=== PATIENT | male | born 1940 | race Caucasian/White ===

== ENCOUNTER 2016-03-22 11:21 | Inpatient (IN) | payer MEDICARE, MEDICAID ==
--- NOTE | 2016-03-22 11:25 | ED Physician Chart ---
Chief Complaint/HPI - Patient Information Date Seen:: 03/22/16 Time Seen:: 11:25 Chief Complaint:: agitation History of Present Illness:: 76-year-old male with underlying dementia, brought in by EMS with acute, constant, moderate to severe, agitation since this morning. Has associated aggressive behavior towards staff when he placed a SPOOL CARRIER into a headlock. History limited as patient has underlying dementia and psychosis History provided by EMS and EMS run sheet Historian:: EMS Review:: Nurse's Note Reviewed, EMS run form Reviewed, Transfer documents Reviewed Review of Systems - Review of Systems Other: Complete system review otherwise unremarkable except as noted in HPI. Past Medical History - Past Medical History Past Medical History: HTN, Dyslipidemia, Dementia Family History: None Social History: Non Smoker, No Alcohol, No Drug Use, Care Facility Surgical History: None Psychiatricy History: Dementia, Other (paranoid delusions) Medication: Reviewed Family Medical History - Family Member Mother History Unknown: Yes Physical Exam - Physical Examination Other:: INITIAL VITAL SIGNS: Reviewed by me GENERAL: Alert and interactive but severely demented. No acute distress HEAD: Head is normocephalic and atraumatic EYES: EOMI. . No scleral icterus. No conjunctival injection ENT: Moist mucous membranes. NECK: Supple. No masses. Full range of motion RESPIRATORY: No tachypnea. Clear breath sounds bilaterally. No wheezing, rales, or rhonchi CV: Regular rate and rhythm. 2/6 systolic murmur with no rubs or gallops ABDOMEN: Soft, non-distended, non-tender. No guarding. No rebound. No masses. EXTREMITIES: No deformity. No cyanosis. No edema. SKIN: Warm and dry. No obvious rashes. NEUROLOGIC: Alert and oriented. Face is symmetric. Speech is normal. Moves all extremities equally. Motor and sensory distally intact. Labs/Radiology/EKG Results - Lab Results Results: Lab Results 03/22/16 03/22/16 03/22/16 Range/Units 11:36 11:36 12:35 WBC 9.6 (4.8-10.8) Th/cmm RBC 5.62 (3.80-5.80) Mil/cmm Hgb 16.2 (12.6-17.4) gm/dL Hct 47.1 (39.0-49.0) % MCV 83.8 (80-99) fl MCH 28.9 (27.0-31.0) pg MCHC Differential 34.4 (28.0-36.0) pg RDW 13.4 (11.5-20.0) % Plt Count 246 (150-400) Th/cmm MPV 8.5 fl Neutrophils % 66.2 (40.0-80.0) % Lymphocytes % 21.0 (20.0-50.0) % Monocytes % 8.1 (2.0-10.0) % Eosinophils % 1.0 (0.0-5.0) % Basophils % 3.7 H (0.0-2.0) % Sodium 135 L (136-145) mEq/L Potassium 4.0 (3.5-5.1) mEq/L Chloride 106 (98-107) mEq/L Carbon Dioxide 24.4 (21.0-31.0) mEq/L Anion Gap 8.6 (7.0-16.0) BUN 18 (7-25) mg/dL Creatinine 1.1 (0.7-1.3) mg/dL Est GFR ( Amer) TNP Est GFR (Non-Af Amer) TNP BUN/Creatinine Ratio 16.4 Glucose 104 (70-105) mg/dL Calcium 9.8 (8.6-10.3) mg/dL Triglycerides 181 H (<150) mg/dL Cholesterol 139 (<200) mg/dL LDL Cholesterol Direct 88 (75-193) mg/dL HDL Cholesterol 41 (23-92) mg/dL Urine Source CLEAN C Urine Color YELLOW Urine Clarity SLIGHT CLOUDY (CLEAR) Urine pH 6.5 Ur Specific [place] 1.020 (1.005-1.030) Urine Protein NEGATIVE (NEGATIVE) mg/dL Urine Glucose (UA) NEGATIVE (NEGATIVE) mg/dL Urine Ketones NEGATIVE (NEGATIVE) mg/dL Urine Blood MODERATE H (NEGATIVE) Urine Nitrate NEGATIVE (NEGATIVE) Urine Bilirubin NEGATIVE (NEGATIVE) Urine Urobilinogen 0.2 (0.2 - 1.0) E.U./dL Ur Leukocyte Esterase LARGE H (NEGATIVE) Urine RBC 10-25 H (0-5) /hpf Urine WBC 50-100 H (0-5) /hpf Ur Epithelial Cells OCCASIONAL (FEW) /lpf Urine Bacteria MODERATE (NONE SEEN) /hpf - EKG Interpretations Comments:: 12-lead EKG Interpretation by Nieves Castro MD: Normal Sinus Rhythm with ventricular rate of 88 beats per minute Normal axis Normal intervals No acute ST or T wave changes. No obvious STEMI ED Septic Shock - . Is Septic Shock (SBP<90, OR Lactate>4 mmol\L) present?: No Reassessment (Disposition) - Reassessment Reassessment:: Patient is medically cleared for the geriatric psych unit Reassessment Condition:: Unchanged - Diagnosis Diagnosis:: Acute psychosis, NOS Hypertension Dementia - Patient Disposition Discharge/Transfer:: Acute Care w/in this hosp Admitted to:: [facility] Admitting Medical Physician:: Lorena Murphy Admitting Psych Physician:: Ken Carlisle Time:: 13:11 Condition at Disposition:: Improved ED Discharge Plan - Patient Disposition Admit/Discharge/Transfer: Acute Care w/in this hosp
[2016-03-22 11:48] LABS: % BASOPHILS 3.7 % (0.0-2.0); % MONOCYTES 8.1 % (2.0-10.0); % NEUTROPHILS 66.2 % (40.0-80.0); HEMATOCRIT 47.1 % (39.0-49.0); HEMOGLOBIN 16.2 gm/dL (12.6-17.4); MEAN CELL VOLUME 83.8 fl (80-99); MEAN CORPUSCULAR HEMOGLOBIN 28.9 pg (27.0-31.0); MEAN CORPUSCULAR HGB CONC 34.4 pg (28.0-36.0); MEAN PLATELET VOLUME 8.5 fl; NEUTROPHILE ABSOLUTE 6.3 Th/cmm (1.8-8.0); PLATELET COUNT 246 Th/cmm (150-400); RED BLOOD COUNT 5.62 Mil/cmm (3.80-5.80); RED CELL DISTRIBUTION WIDTH 13.4 % (11.5-20.0); WHITE BLOOD COUNT 9.6 Th/cmm (4.8-10.8)
[2016-03-22 11:58] LABS: ANION GAP 8.6 (7.0-16.0); BUN - UREA NITROGEN 18 mg/dL (7-25); BUN/CREATININE RATIO 16.4; CARBON DIOXIDE 24.4 mEq/L (21.0-31.0); CHLORIDE 106 mEq/L (98-107); CREATININE - SERUM 1.1 mg/dL (0.7-1.3); GLUCOSE 104 mg/dL (70-105); SODIUM SERUM 135 mEq/L (136-145)
[2016-03-22 11:59] LABS: CALCIUM SERUM 9.8 mg/dL (8.6-10.3); CHOLESTEROL 139 mg/dL (<200); TRIGLYCERIDES 181 mg/dL (<150)
[2016-03-22 12:57] LABS: URINE BILIRUBIN NEGATIVE (NEGATIVE); URINE COLOR YELLOW; URINE GLUCOSE (UA) NEGATIVE (NEGATIVE); URINE KETONE NEGATIVE (NEGATIVE)
[2016-03-22 12:58] LABS: URINE BLOOD MODERATE (NEGATIVE); URINE PH 6.5; URINE PROTEIN NEGATIVE (NEGATIVE); URINE UROBILINOGEN 0.2 E.U./dL (0.2 - 1.0)
[2016-03-22 13:03] LABS: URINE BACTERIA MODERATE /hpf (NONE SEEN); URINE EPITHELIAL CELLS OCCASIONAL /lpf (FEW); URINE WBC 50-100 /hpf (0-5)
[2016-03-22] MEDS ORDERED: Haloperidol Lactate 5 mg/mL 1mL Vial ONE (14:37)
[2016-03-22] MEDS ORDERED: Haloperidol Lactate 5 mg/mL 1mL Vial IM STA (14:44)
[2016-03-22 15:09] VITALS: BP 126/66
[2016-03-22 16:15] LABS: ALB/GLOB RATIO 1.2 (1.0-1.8); ALKALINE PHOSPHATASE 94 U/L (34-104); ANION GAP 11.9 (7.0-16.0); BILIRUBIN,TOTAL 0.6 mg/dL (0.3-1.0); BUN - UREA NITROGEN 18 mg/dL (7-25); BUN/CREATININE RATIO 16.4; CALCIUM SERUM 9.7 mg/dL (8.6-10.3); CARBON DIOXIDE 22.1 mEq/L (21.0-31.0); CHLORIDE 105 mEq/L (98-107); CREATININE - SERUM 1.1 mg/dL (0.7-1.3); GLUCOSE 101 mg/dL (70-105); SGOT 18 U/L (13-39); SGPT/ALT 12 U/L (7-52); SODIUM SERUM 135 mEq/L (136-145)
[2016-03-23] MEDS ORDERED: Non-Formulary Item 1 EA (Donepezil Hcl [Aricept] 10 MG) PO SCH (09:00)
[2016-03-23] MEDS ORDERED: Multivitamin Tab PO SCH (09:00)
[2016-03-23] MEDS: Oxybutynin Chloride 5 mg ER Tab PO SCH (09:48)
[2016-03-23] MEDS: Multivitamin w/ Minerals Tab PO SCH (09:48)
[2016-03-23] MEDS: NIFEdipine 30 mg ER Tab PO SCH (10:10)
[2016-03-23 14:10] LABS: HEP B CORE IGM Negative (Negative); HEP C ANTIBODY <0.1 s/co ratio (0.0-0.9)
--- NOTE | 2016-03-24 08:25 | Psychosocial Evaluation ---
IDENTIFYING DATA: The patient is a 76-year-old male admitted here on a 5150 as a danger to self and others and being gravely disabled. The patient has been admitted from [facility]. CHIEF COMPLAINT: "I don't know". HISTORY OF PRESENT ILLNESS: This is the first psychiatric hospitalization to [facility] for this patient who is reported to have been screaming and yelling and has been out of control. The patient has been on multiple medications at the time of the evaluation. The patient has to be given a dose of Haldol and Benadryl to calm him down. The patient at this time has been isolative and withdrawn and is not getting out of the room. Prior to the hospitalization, the patient has been on Aricept 10 mg daily and the patient is also on olanzapine 2.5 mg and even with these medication the patient has not been able to comply with the treatment and has been screaming and yelling. PAST PSYCHIATRIC HISTORY: Details are not known. MEDICAL HISTORY: Physical examination is requested, done by Dr. Murphy. SUBSTANCE ABUSE HISTORY: None. PHYSICAL OR SEXUAL ABUSE HISTORY: None. LEGAL PROBLEMS: None at this time. STRENGTH AND ASSETS: The patient is motivated. MENTAL STATUS EXAMINATION: The patient is a 76-year-old thin built, superficially cooperative. Eye contact is poor. Mood is noted to be irritable. Affect is constricted. Insight and judgment are very much impaired. Impulse control is noted to be poor. Coping skills are also noted to be poor. No side effects to the medications are noted. The patient has been having difficult time to cope with the stress. The patient is getting easily agitated during the time of the evaluation. The patient's short and long-term memory could not be tested because the patient is not cooperative. The patient continues to be very paranoid. ASSESSMENT: INITIAL DIAGNOSIS: Psychosis, NOS. AXIS II: None. AXIS III: As per Dr. Murphy. IMMEDIATE TREATMENT PLAN: The patient is going to be observed on inpatient unit, provided with supportive psychotherapy. The patient is going to be closely monitored. When stabilized, the patient is going to be discharged to [facility] to be followed up on an outpatient basis. JOB# [id number]
[2016-03-24] MEDS: Oxybutynin Chloride 5 mg ER Tab PO SCH ×2 (09:05→17:12)
[2016-03-24] MEDS: Multivitamin w/ Minerals Tab PO SCH (09:05)
[2016-03-24] MEDS: NIFEdipine 30 mg ER Tab PO SCH (09:06)
--- NOTE | 2016-03-24 09:17 | Consultation ---
INTERNAL MEDICINE CONSULTATION: REFERRING PHYSICIAN: Ken Carlisle M.D. REASON FOR CONSULT: Medical management. HISTORY OF PRESENT ILLNESS: This is a 76-year-old gentleman with history of Alzheimer's dementia, history of schizophrenia, hypertension, BPH and acid reflux disease, who has been admitted from [facility] for acute psychosis. The patient was seen in the ER and now resides in the [facility]. He is currently lying in bed. He is a poor historian, not able to tell me any significant history, but denies any complaints at this time. He states that he has no medical history, although his records state as above that he has a history of hypertension, dyslipidemia, dementia, and acid reflux disease as mentioned above. He also takes medications for EPS. PAST MEDICAL HISTORY: As noted above. PAST SURGICAL HISTORY: Unknown. FAMILY HISTORY: Unknown. SOCIAL HISTORY: Denies any tobacco, ETOH or illicit drug usage. Lives at [facility]. ALLERGIES: No known drug allergies. OUTPATIENT MEDICATIONS: Lorazepam 0.5 every 6 hours as needed, Haldol as needed every 6 hours for striking out, Zyprexa 2.5 at bedtime, Flomax 0.4 every morning, trihexyphenidyl 1 mg every day, Aricept 10 mg every day, famotidine 40 mg every day, nifedipine ER 30 mg every day, enalapril 10 mg every day, Tylenol 325 two tabs every 4 hours as needed for pain, oxybutynin ER 2.5 twice a day, simvastatin 20 mg every day, docusate sodium 250 twice a day. REVIEW OF SYSTEMS: A good review of systems was not able to be done given the patient's condition. PHYSICAL EXAMINATION: VITAL SIGNS: Temperature 97.8, pulse 104, respirations 20, BP 153/103, satting 97% on room air. GENERAL: He is a well-developed, well-nourished, thin male, currently awake, in no apparent distress. He is somewhat slurred in speech. HEAD AND NECK: Normocephalic, atraumatic. Pupils reactive to light. CARDIOVASCULAR: Regular rate and rhythm without any murmurs. LUNGS: Clear to auscultation bilaterally. ABDOMEN: Soft, supple, nontender, nondistended. Normoactive bowel sounds. EXTREMITIES: There is no edema in the lower extremities. NEUROLOGIC: Nonfocal. He is able to move all 4 extremities with equal force and strength. His cranial nerves II through XII are within normal limits. His gait and balance are within normal limits. LABORATORY DATA: CBC was within normal limits. Chemistry panel shows sodium of 135, otherwise within normal limits. Triglycerides 181, LDL 88, HDL 41. UA showed large leukocytes, 10-25 rbc's, 15-10 wbc's. DIAGNOSTICS: EKG shows normal sinus rhythm at a rate of 88, with no obvious abnormalities such as ST or T-wave changes. IMPRESSION: 1. Acute psych decompensation. 2. Urinary tract infection. 3. History of Alzheimer's dementia. 4. History of schizophrenia. 5. Hypertension. 6. Acid reflux disease. 7. Dyslipidemia. PLAN: The patient has been admitted to [facility] for further management and care. He will be kept on his current medications including his BP meds and cholesterol meds as scheduled. The patient will also be given Cipro 250 by mouth twice a day for his UTI. We will follow urine culture and sensitivity. The patient also will remain on the Flomax. The patient also will be placed on as needed clonidine for elevated blood pressure levels. JOB# [id number]
--- NOTE | 2016-03-25 01:02 | Progress Notes ---
TIME PATIENT SEEN: 11:15 a.m. SUBJECTIVE: Staff was spoken to. The patient is interviewed. Mood is noted to be irritable. Affect is constricted. Insight and judgment at this time are noted to be still impaired. The patient is very paranoid and has been demanding that he should be out of here. The patient has no insight. The patient has to be given a dose of Haldol yesterday to calm him down. ASSESSMENT: The patient is still psychotic and gravely disabled. PLAN: To continue the patient with the supportive therapy. I encouraged the patient to verbalize the concerns. The patient's family is visiting and they have been spoken to. JOB# [id number]
[2016-03-25] MEDS: Oxybutynin Chloride 5 mg ER Tab PO SCH ×2 (08:20→16:38)
[2016-03-25] MEDS: Multivitamin w/ Minerals Tab PO SCH (08:23)
[2016-03-25] MEDS: NIFEdipine 30 mg ER Tab PO SCH (08:26)
--- NOTE | 2016-03-25 21:33 | Progress Notes ---
PSYCHIATRIC PROGRESS NOTE TIME PATIENT SEEN: 11:30 a.m. SUBJECTIVE: Staff was spoken to. The patient is interviewed. Mood is noted to be irritable. Affect is constricted. Insight and judgment are noted to be still impaired. Impulse control is noted to be poor. The patient is getting easily frustrated. The patient's sister who has been the conservator has been spoken to and the patient has been placed on Zyprexa and has been able to tolerate the medication so far. ASSESSMENT: The patient is still psychotic. PLAN: To continue the patient with the current medications. I encouraged the patient to verbalize the concerns rather than to act out. JOB# [id number]
[2016-03-26] MEDS: Oxybutynin Chloride 5 mg ER Tab PO SCH ×2 (08:57→16:39)
[2016-03-26] MEDS: Multivitamin w/ Minerals Tab PO SCH (08:59)
[2016-03-26] MEDS: NIFEdipine 30 mg ER Tab PO SCH (08:59)
--- NOTE | 2016-03-26 20:53 | Progress Notes ---
PSYCHIATRIC PROGRESS NOTE TIME PATIENT SEEN: 7:30 a.m. SUBJECTIVE: Staff was spoken to. The patient is interviewed. Mood is noted to be irritable. Affect is constricted. Coping skills are noted to be poor. The patient has paranoid delusions. Insight and judgment at this time are noted to be impaired. Impulse control seems to be poor. No side effects of the medications are noted. The patient is demanding. The patient needs to be redirected. The patient is currently on Artane 2 mg daily along with olanzapine 2.5 mg at bedtime. PLAN: To increase olanzapine to 5 mg, and I encouraged the patient to verbalize the concerns rather than to act out. JOB# [id number]
[2016-03-27] MEDS: Oxybutynin Chloride 5 mg ER Tab PO SCH ×2 (10:41→17:10)
[2016-03-27] MEDS: Multivitamin w/ Minerals Tab PO SCH (10:54)
[2016-03-27] MEDS: NIFEdipine 30 mg ER Tab PO SCH (10:54)
[2016-03-27] MEDS ORDERED: Docusate Sodium/Senna Tab ONE (21:00)
--- NOTE | 2016-03-27 21:46 | Progress Notes ---
PSYCHIATRIC PROGRESS NOTE TIME PATIENT SEEN: 8:00 a.m. SUBJECTIVE: Staff was spoken to. The patient is interviewed. Mood is noted to be anxious. Affect is constricted. The patient is isolative and withdrawn. Insight and judgment at this time are noted to be still impaired. Impulse control seems to be poor. The patient has paranoid delusions, but denies any command hallucinations. No side effects to the medications are noted. reporting that the patient is getting easily irritable and angry when he is approached. The patient is reporting that sleep is okay and appetite is poor. The patient has been currently encouraged to participate in the groups. The patient is currently on olanzapine 5 mg at bedtime and the patient is also getting the trihexyphenidyl 2 mg in the morning and the patient is able to tolerate the medications. ASSESSMENT: The patient is still psychotic and impulsive. PLAN: To continue the patient with the supportive therapy. I encouraged the patient to verbalize the concerns rather than to act out. [facility]# [id number]
[2016-03-28] MEDS: Oxybutynin Chloride 5 mg ER Tab PO SCH ×2 (11:33→17:38)
[2016-03-28] MEDS: NIFEdipine 30 mg ER Tab PO SCH (11:34)
[2016-03-28] MEDS: Multivitamin w/ Minerals Tab PO SCH (11:37)
--- NOTE | 2016-03-29 01:29 | Progress Notes ---
PSYCHIATRIC PROGRESS NOTE TIME PATIENT SEEN: 8:30 a.m. SUBJECTIVE: Staff was spoken to. The patient is interviewed. Mood is noted to be irritable. Affect is constricted. Insight and judgment are noted to be still impaired. Impulse control seems to be poor. Coping skills are noted to be very poor. The patient has been having difficult time to cope with the stress. The patient has been having poor coping skills. ASSESSMENT: The patient is still psychotic and impulsive. PLAN: To continue the patient with the supportive therapy and follow. JOB# [id number]
[2016-03-29] MEDS: Multivitamin w/ Minerals Tab PO SCH (08:45)
[2016-03-29] MEDS: Oxybutynin Chloride 5 mg ER Tab PO SCH ×2 (08:45→16:42)
[2016-03-29] MEDS: NIFEdipine 30 mg ER Tab PO SCH (08:49)
--- NOTE | 2016-03-30 08:03 | Progress Notes ---
PSYCHIATRIC PROGRESS NOTE TIME PATIENT SEEN: 5:00 p.m. SUBJECTIVE: Staff was spoken to. The patient is interviewed. Mood is noted to be irritable. Affect is constricted. Coping skills are noted to be still poor. Sleep and appetite are also noted to be poor. The patient has been screaming and yelling most of the time. No side effects to the medications are noted. The patient has been having difficult time to cope with the stress. ASSESSMENT: The patient is still grossly psychotic and impulsive. PLAN: To continue the patient with Zyprexa and follow the patient. The patient is not ready to be discharged to a lower level of care because of his aggressive behavior. JOB# [id number]
[2016-03-30] MEDS: Multivitamin w/ Minerals Tab PO SCH (08:30)
[2016-03-30] MEDS: NIFEdipine 30 mg ER Tab PO SCH (08:33)
[2016-03-30] MEDS: Oxybutynin Chloride 5 mg ER Tab PO SCH ×2 (08:33→17:04)
--- NOTE | 2016-03-31 03:01 | Progress Notes ---
TIME PATIENT SEEN: 09:00 a.m. SUBJECTIVE: Staff was spoken to. The patient is interviewed. Mood is irritable. Affect is constricted. Insight and judgment at this time are noted to be impaired. The patient continues to be paranoid. The patient has been on Zyprexa and has been able to tolerate the medications. On one hand, the patient is ____ the medication is too much and he does not want to take it because it is making him too sleepy. The patient is currently on olanzapine 5 mg at bedtime. The patient also has been getting the Artane 2 mg daily and with these medications, the patient has been able to calm down, but participation in the groups is noted to be very poor. ASSESSMENT: The patient is still psychotic. PLAN: To continue the patient with supportive therapy and follow up. JOB# [id number]
[2016-03-31] MEDS: Multivitamin w/ Minerals Tab PO SCH (08:41)
[2016-03-31] MEDS: Oxybutynin Chloride 5 mg ER Tab PO SCH ×2 (08:41→16:47)
[2016-03-31] MEDS: NIFEdipine 30 mg ER Tab PO SCH (08:42)
--- NOTE | 2016-03-31 23:30 | Progress Notes ---
PSYCHIATRIC PROGRESS NOTE TIME PATIENT SEEN: 9:45 a.m. SUBJECTIVE: Staff was spoken to. The patient is interviewed. Mood is noted to be anxious. The patient is confused at this time. The patient even though has been provided with the food, is not able to eat it. The staff have to really encourage him to comply. The patient's insight and judgment at this time are noted to be very much impaired. Impulse control seems to be little. The patient is currently on Zyprexa and is able to tolerate the medication. ASSESSMENT: The patient is very confused at this time and demented. PLAN: To continue the patient with the current medications and follow up. JOB# [id number]
[2016-04-01] MEDS: NIFEdipine 30 mg ER Tab PO SCH (08:45)
[2016-04-01] MEDS: Multivitamin w/ Minerals Tab PO SCH (08:46)
[2016-04-01] MEDS: Oxybutynin Chloride 5 mg ER Tab PO SCH ×2 (08:47→16:47)
--- NOTE | 2016-04-02 00:57 | Progress Notes ---
PSYCHIATRIC PROGRESS NOTE TIME PATIENT SEEN: 7:45 a.m. SUBJECTIVE: Staff was spoken to. The patient is interviewed. Mood is noted to be irritable. Affect is constricted. The patient is screaming and stating that he needs to be out of here. Paranoid delusions are noted. Coping skills are noted to be poor. The patient needs to be redirected. The patient is currently on antipsychotic medication Zyprexa and is able to tolerate the medication. No side effects to the medications are noted. The patient has been treated for urinary tract infection recently. ASSESSMENT: The patient is still psychotic. PLAN: To continue the patient with supportive therapy and follow up. JOB# [id number]
[2016-04-02] MEDS: Oxybutynin Chloride 5 mg ER Tab PO SCH ×2 (08:53→17:01)
[2016-04-02] MEDS: NIFEdipine 30 mg ER Tab PO SCH (08:55)
[2016-04-02] MEDS: Multivitamin w/ Minerals Tab PO SCH (08:56)
--- NOTE | 2016-04-02 22:42 | Progress Notes ---
PSYCHIATRIC PROGRESS NOTE TIME PATIENT SEEN: 7:45 a.m. SUBJECTIVE: Staff was spoken to. The patient is interviewed. Mood is noted to be anxious. The patient's coping skills are noted to be poor. Sleep and appetite also noted to be poor. The patient has been having difficult time to cope with the stress. The patient is currently on 5 mg of the Seroquel, but continues to be very irritable, angry, and paranoid. The patient has no insight into his illness. PLAN: To increase the dose on the Zyprexa to 7.5 mg and encourage the patient to verbalize the concerns rather than to act out. ASSESSMENT: The patient is still psychotic and is not ready to be discharged to a lower level of care. [facility]# [id number]
[2016-04-03] MEDS: Multivitamin w/ Minerals Tab PO SCH (08:53)
[2016-04-03] MEDS: Oxybutynin Chloride 5 mg ER Tab PO SCH ×2 (08:54→16:57)
[2016-04-03] MEDS: NIFEdipine 30 mg ER Tab PO SCH (08:54)
--- NOTE | 2016-04-04 06:36 | Progress Notes ---
TIME PATIENT SEEN: 5:15 p.m. SUBJECTIVE: Staff was spoken to. The patient is interviewed. Mood is noted to be irritable. Affect is constricted. Coping skills are noted to be ____very poor. Sleep and appetite are also noted to be very poor. The patient has been having difficult time to cope with the stress. No side effects to the medications are noted. The patient has been isolative and withdrawn. The patient is reported to have been out of control and has got into an argument with other resident yesterday. ASSESSMENT: The patient is still psychotic. PLAN: To continue the patient with the current medications and follow up. JOB# [id number]
[2016-04-04] MEDS: NIFEdipine 30 mg ER Tab PO SCH (08:51)
[2016-04-04] MEDS: Multivitamin w/ Minerals Tab PO SCH (08:52)
[2016-04-04] MEDS: Oxybutynin Chloride 5 mg ER Tab PO SCH (08:53)
--- NOTE | 2016-04-05 00:38 | Progress Notes ---
PSYCHIATRIC PROGRESS NOTE TIME PATIENT SEEN: 7:30 a.m. SUBJECTIVE: Staff was spoken to. The patient is interviewed. Mood is noted to be anxious. The patient's insight and judgment noted to be improving. Impulse control seems to be fair. The patient has paranoia, but denies any command hallucinations. No aggressive behavior is reported today. No side effects to the medications are noted. ASSESSMENT: The patient is stabilizing. PLAN: To discharge the patient today. The patient is currently on Zyprexa and has been able to tolerate the medication. JOB# [id number]
--- NOTE | 2016-04-20 20:12 | Discharge Summary ---
IDENTIFYING DATA: The patient is a 76-year-old male admitted on a 5150 as a danger to self and others. CHIEF COMPLAINT: "I do not know." DIAGNOSIS AT THE TIME OF ADMISSION: Psychotic disorder, unspecified. HISTORY OF PRESENT ILLNESS: Please refer to the 03/23/2016 dictation done by me. Physical examination was done by Dr. Murphy and is noted to be significant for urinary tract infection, hypertension, acid reflux and dyslipidemia. Lab studies done at the time of the hospitalization have been reviewed by Dr. Murphy. HOSPITAL COURSE AND RESPONSE TO TREATMENT: The patient has been continued on the Aricept 10 mg on a daily basis. The patient also has been given the olanzapine 7.5 mg. The patient is encouraged to participate in groups and verbalize the concerns. The patient has been given the trihexyphenidyl 2 mg for the side effects and the patient has been closely monitored and encouraged to participate in the groups. The patient started to participate and no major behavioral problems are noted. The patient was finally discharged to [facility] in [place] to be followed up by Dr. Diaz. MENTAL STATUS EXAMINATION: At the time of the discharge, the patient's mood is noted to be less irritable. Affect is appropriate. The agitated behavior and paranoia have subsided. The patient denies any command hallucinations. No major behavioral problems are noted at the time of the discharge. CONDITION AT THE TIME OF DISCHARGE: Noted to be stable. DIAGNOSES AT THE TIME OF DISCHARGE: AXIS I: Psychotic disorder, unspecified. AXIS II: None. AXIS III: Hypertension, arthritis, acid reflux, dyslipidemia. AFTERCARE PLAN: The patient is discharged to be followed up on an outpatient basis. PROGNOSIS AT THE TIME OF DISCHARGE: Noted to be fair with the treatment. JOB# [id number]
== END 2016-04-04 12:30 | DRG 885 ==
LOC: ER 11:21 → GERO 13:30
PROVIDERS: ADMIT Psychiatry & Neurology Psychiatry; ATTEND Psychiatry & Neurology Psychiatry
DX: F29 Unspecified psychosis not due to a substance or known physiological condition (principal); N39.0 Urinary tract infection, site not specified; G30.9 Alzheimer's disease, unspecified; F02.80 Dementia in other diseases classified elsewhere, unspecified severity, without behavioral disturbance, psychotic disturbance, mood disturbance, and anxiety; I10 Essential (primary) hypertension; E78.5 Hyperlipidemia, unspecified; N40.0 Benign prostatic hyperplasia without lower urinary tract symptoms; K21.9 Gastro-esophageal reflux disease without esophagitis; E78.00 Pure hypercholesterolemia, unspecified; F20.9 Schizophrenia, unspecified
CPT/HCPCS: 36415-UA; 80048-TC; 80053-TC; 80061-TC; 80074-90; 81001-TC; 84443-TC; 85025-TC; 86592-TC; 87086-90; 90899; 93005; G0410; J1200; J1630; J2060; J7051; Z7610

== ENCOUNTER 2017-01-21 18:04 | Inpatient (IN) | payer MEDICARE, MEDICAID ==
[2017-01-21 19:40] LABS: % BASOPHILS 1.2 % (0.0-2.0); % EOSINOPHILS 0.8 % (0.0-5.0); % LYMPHOCYTES 19.6 % (20.0-50.0); % MONOCYTES 5.7 % (2.0-10.0); % NEUTROPHILS 72.7 % (40.0-80.0); HEMATOCRIT 42.4 % (41.0-60); MEAN CELL VOLUME 86.4 fl (80-99); MEAN CORPUSCULAR HEMOGLOBIN 28.9 pg (27.0-31.0); MEAN CORPUSCULAR HGB CONC 33.5 pg (28.0-36.0); MEAN PLATELET VOLUME 8.2 fl; NEUTROPHILE ABSOLUTE 6.6 Th/cmm (1.8-8.0); PLATELET COUNT 260 Th/cmm (150-400); RED BLOOD COUNT 4.91 Mil/cmm (3.80-5.80); RED CELL DISTRIBUTION WIDTH 13.4 % (11.5-20.0); WHITE BLOOD COUNT 9.1 Th/cmm (4.8-10.8)
--- NOTE | 2017-01-21 19:59 | ED Physician Chart ---
ED Chief Complaint/HPI - Patient Information Date Seen:: 01/21/17 Time Seen:: 19:52 Chief Complaint:: Agitation and aggressivenes History of Present Illness:: 76 yo male who was a resident at [facility] [place]. He was brought to the ER for evaluation of uncontrolled behavior, agitation and aggressiveness. He failed to follow direction. Allergies:: Allergies Allergy/AdvReac Type Severity Reaction Status Date / Time No Known Allergies Allergy Verified 03/22/16 11:39 Vitals:: Vital Signs - 8 hr 01/21/17 18:11 Temp 97.8 F HR 71 RR 18 BP 143/69 O2 Sat % 98 ED Review of Systems - Review of Systems General/Constitutional: No fever, No chills Skin: No skin lesions Eyes: No loss of vision ENT: No earache Neck: No neck pain, No swelling Cardio Vascular: No chest pain Pulmonary: No SOB GI: No nausea, No vomiting Psychiatric: Prior psych history Neurological: No syncope ED Past Medical History - Past Medical History Past Medical History: HTN, Dementia, Other (Extrapyramidal and movement disorder , abnormal gait, anxiety, hypertension, BPH, overactive bladder) Social History: Non Smoker, No Alcohol, No Drug Use Psychiatricy History: Schizophrenia, Other (psychosis, anxiety) Family Medical History - Family Member Mother History Unknown: Yes ED Physical Exam - Physical Examination General/Constitutional: Awake, Alert Other Gen/Cons comments:: oriented to first name only Eyes: PERRL, EOMI Skin: No ecchymosis ENMT: Nasal exam nl Respiratory: Clear to Auscultation, No Wheeze/Rhonchi/Rales Cardio Vascular: RRR, No murmur, gallop, rubs, NL S1 S2 GI: No tenderness/rebounding/guarding Extremities: No tenderness or effusion, No edema Other Neuro/Psych comments:: Not follow command ED Assessment - Assessment General Assessment: 76 yo male presented with psychosis, dementia with increased agitation and hyponatremia. Critical Care Time: 30 min Excludes all billable procedures: Yes This condition life threatening/high prob of deterioration: No Assessment/Comments:: CBC, CMP, TSH, A1c, UA, urine drug screen CXR, EKG NS 1L IV bolus Admit to in patient psych ED Septic Shock - . Is Septic Shock (SBP<90, OR Lactate>4 mmol\L) present?: No - <6hrs of presentation: Vital Signs: Vital Signs - 8 hr 01/21/17 18:11 Temp 97.8 F HR 71 RR 18 BP 143/69 O2 Sat % 98 ED Reassessment (Disposition) - Reassessment Reassessment Condition:: Improved - Patient Disposition Discharge/Transfer:: Acute Care w/in this hosp Admitting Psych Physician:: Ken Carlisle ED Discharge Plan - Patient Disposition Admit/Discharge/Transfer: Other Care w/in this hosp
[2017-01-21 20:06] LABS: HEMOGLOBIN 14.2 gm/dL (12-16)
[2017-01-21 20:08] LABS: ALB/GLOB RATIO 1.6 (1.0-1.8); ALKALINE PHOSPHATASE 73 U/L (34-104); ANION GAP 7.8 (7.0-16.0); BILIRUBIN,TOTAL 0.5 mg/dL (0.3-1.0); BUN - UREA NITROGEN 14 mg/dL (7-25); BUN/CREATININE RATIO 12.7; CALCIUM SERUM 8.8 mg/dL (8.6-10.3); CARBON DIOXIDE 25.7 mEq/L (21.0-31.0); CHLORIDE 104 mEq/L (98-107); CREATININE - SERUM 1.1 mg/dL (0.7-1.3); GLUCOSE 109 mg/dL (70-105); POTASSIUM SERUM 3.5 mEq/L (3.5-5.1); SGOT 12 U/L (13-39); SGPT/ALT 6 U/L (7-52); SODIUM SERUM 134 mEq/L (136-145)
[2017-01-21] MEDS ORDERED: Sodium Chloride 0.9% 1,000 ML IV ONE (20:31)
[2017-01-21 22:43] VITALS: BP 118/73
[2017-01-21] MEDS ORDERED: Maalox 30 mL Cup PO PRN (23:09)
--- NOTE | 2017-01-22 07:13 | Diagnostic Imaging Report ---
Portable chest x-ray Time: 1916 hours History: Pain Allowing for portable technique the heart size is normal. No focal pulmonary parenchymal processes. No hilar or mediastinal abnormalities. Impression: No acute abnormalities.
[2017-01-22] MEDS: Multivitamin w/ Minerals Tab PO SCH (09:45)
--- NOTE | 2017-01-22 14:17 | History & Physical ---
ADMIT DATE: 01/22/2017 REFERRING PHYSICIAN: Dr. Carlisle. REASON FOR CONSULT: Medical management, history of hypertension, dementia, BPH. HISTORY OF PRESENT ILLNESS: A 76-year-old gentleman with history of essential hypertension, dementia, EPS, unsteady gait, anxiety, BPH, who was transferred from retirement from [facility] given agitation and aggressive behavior. The patient is an extremely poor historian. At this time, he is asleep, but arousable. He is not able to answer any significant questions. PAST MEDICAL HISTORY: As noted above. Overactive bladder, previous hyperkalemia, unspecified psychosis, schizophrenia unspecified, essential hypertension, generalized muscle weakness. PAST SURGICAL HISTORY: Unknown. FAMILY HISTORY: Unknown, but noncontributory to this admission. SOCIAL HISTORY: Unknown, lives at a retirement facility. ALLERGIES: NKDA. OUTPATIENT MEDICATIONS: Tylenol 650 q.4h. p.r.n. for fever or pain, amlodipine 5 b.i.d., docusate sodium 100 mg every day, Aricept 10 mg at bedtime, enalapril 10 mg b.i.d., Namenda 5 daily, multivitamins with minerals 1 every day, olanzapine 5 q.12h., oxybutynin 2.5 b.i.d., simvastatin 20 at bedtime, Flomax 0.4 daily, and Artane 2 mg every day. REVIEW OF SYSTEMS: Not able to be done given that the patient is a poor historian. PHYSICAL EXAMINATION: VITAL SIGNS: Temperature 98.0, he has been afebrile, pulse 71, respirations 19, BP 128/82, satting 95% on room air. GENERAL: He is a well-developed, well-nourished male who appears to be in no acute distress. He is asleep, but arousable. HEAD AND NECK: Normocephalic, atraumatic. Pupils are reactive to light. Extraocular movements are intact. Oropharynx moist and clear. NECK: There is no JVD or LAD. CARDIOVASCULAR: Regular rate and rhythm with distant sounds, S1, S2 could be heard. LUNGS: Decreased at the bases. No audible rhonchi or wheezing noted. ABDOMEN: Soft, supple, nontender, nondistended, normoactive bowel sounds. EXTREMITIES: On lower extremity, there is no clubbing, cyanosis, or edema. NEUROLOGIC: A full exam cannot be done, but it appears to be nonfocal. Cranial nerves 2-12 appear to be within normal limits. LABORATORY DATA: CBC was essentially within normal limits. Sodium 134, otherwise chemistry was within normal limits. Glucose 109, A1c 5.3, AST 12, ALT 6, alkaline phosphatase 73, total protein 5.9, albumin 3.6. DIAGNOSTICS: Chest x-ray shows no abnormalities. IMPRESSION AND PLAN: 1. Acute psych decompensation. 2. Dementia with behavioral disorder. 3. EPS. 4. Essential hypertension. 5. History of unsteady gait. 6. History of chronic anxiety. 7. History of BPH. 8. History of overactive bladder disease. 9. Mild malnutrition per albumin level. PLAN: The patient has been admitted to [facility] for supportive care and treatment. The patient will be kept on his medications as scheduled and the patient will be kept on his other medications as scheduled. I will ask for protein supplement with meals. We will follow on a daily basis. JOB# [id number]
--- NOTE | 2017-01-23 06:22 | Psychosocial Evaluation ---
DATE OF SERVICE: 01/22/2017 IDENTIFYING DATA: The patient is a 76-year-old male admitted here from [facility]. CHIEF COMPLAINT: "I am okay." HISTORY OF PRESENT ILLNESS: This is one of multiple psychiatric hospitalizations for this patient who was under my care in 2016. The patient is reported to have been getting agitated and aggressive, and is not willing to comply with the treatment, and hence the patient has been referred over here for stabilization. Staff was spoken to. The patient is interviewed and the patient is not making much sense and has been going off on a tangent. The patient is reported to have been taking the olanzapine and lorazepam prior to being in the hospital and even with those medications the patient could not be contained and redirected. The patient also has a history of being on the Namenda and Aricept. The patient is currently on Zyprexa 5 mg every 12 hours. PAST PSYCHIATRIC: The patient's sleep and appetite prior to the hospitalization are reported to be very poor. PAST PSYCHIATRIC HISTORY: Please refer to the above. MEDICAL HISTORY: Physical examination is requested to be done by Dr. Murphy. SUBSTANCE ABUSE HISTORY: None. PHYSICAL OR SEXUAL ABUSE HISTORY: None. STRENGTH AND ASSETS: The patient seems to be motivated. MENTAL STATUS EXAMINATION: The patient is a 76-year-old, looking his stated age, superficially cooperative. The patient is sitting in the wheelchair and not making much sense, talking to self. Paranoid delusions are noted, but the patient denies any command hallucinations. The patient's short and long-term memory noted to be very impaired. The patient is going on a tangent and is not able to provide any coherent information at this time. The patient is getting easily irritable when I am talking to him. DIAGNOSTIC IMPRESSION: 1a. Psychotic disorder, not otherwise specified. 1b. Dementia and behavioral change, secondary trait. IMMEDIATE TREATMENT PLAN: The patient is going to be observed on inpatient unit, provided with supportive psychotherapy. The patient is going to be continued on the olanzapine 7.5 mg at bedtime and patient is going to be closely monitored. Once stabilized, the patient is going to be discharged. ESTIMATED LENGTH OF STAY: 3-5 days. DISCHARGE CRITERIA: When he no longer a threat to self or others and be able to cope up with the stress. JOB# [id number]
[2017-01-23] MEDS: Multivitamin w/ Minerals Tab PO SCH (08:16)
--- NOTE | 2017-01-23 23:17 | Progress Notes ---
DATE: 01/23/2017 SUBJECTIVE: Staff was spoken to. The patient is interviewed. Mood is noted to be irritable. Affect is constricted. The patient has been perseverating. The patient's insight and judgment at this time are noted to be very much impaired. Impulse control seems to be limited. The patient has been having difficult time to cope with the stress. No side effects to the medications are noted. The patient is a total-care patient at this time. ASSESSMENT: The patient is still grossly psychotic and demented. PLAN: Continue this patient on supportive psychotherapy and encourage the patient to verbalize the concerns and closely monitor for his aggressive behavior. JOB# [id number]
[2017-01-24] MEDS: Multivitamin w/ Minerals Tab PO SCH (08:51)
--- NOTE | 2017-01-25 07:34 | Progress Notes ---
DATE: 01/24/2017 SUBJECTIVE: Staff was spoken to. The patient is interviewed. Mood is noted to be irritable. Affect is constricted. Insight and judgment at this time are noted to be still impaired. Impulse control seems to be poor. The patient is singing and laughing. Patient has no insight into his illness. Coping skills ____ extremely poor. The patient is still not able to contract for safety. Continues to be very paranoid. ASSESSMENT: The patient is grossly psychotic. PLAN: To increase the dose on the olanzapine to 10 mg at bedtime and follow the patient with supportive therapy. JOB# [id number]
[2017-01-25] MEDS: Multivitamin w/ Minerals Tab PO SCH (09:31)
--- NOTE | 2017-01-26 01:51 | Progress Notes ---
DATE: 01/25/2017 PSYCHIATRIC PROGRESS NOTE SUBJECTIVE: Staff was spoken to. The patient is interviewed. Mood is noted to be irritable. Affect is constricted. Insight and judgment at this time are noted to be still impaired. Impulse control seems to be poor. Coping skills are also noted to be very poor. The patient has been having difficult time to cope with the stress. The patient has been having tremors in the upper extremities and pain, has been constantly shaking at this time. The patient continues to be very paranoid and has been having difficult time. The patient also has been having problem with the memory and then has pain constantly, saying the same thing over and over. ASSESSMENT: The patient is still paranoid and demented. PLAN: To continue the patient with Aricept 10. Add the patient on Namenda and continue the Aricept. I encouraged the patient to verbalize the concerns rather than to act out. The patient's coping skills at this time are noted to be still impaired. The patient is not ready to be discharged to a lower level of care. JOB# [id number]
[2017-01-26] MEDS: Multivitamin w/ Minerals Tab PO SCH (08:34)
--- NOTE | 2017-01-26 23:45 | Progress Notes ---
DATE: 01/26/2017 SUBJECTIVE: Staff was spoken to. Patient is interviewed. The patient is still confused, demented and paranoid. The patient has been pacing most of the time. The patient's insight and judgment at this time are noted to be very much impaired. Impulse control seems to be limited. The patient has been having difficult time to cope with the stress. ASSESSMENT: The patient is still grossly psychotic. PLAN: To continue the patient with the supportive therapy. I encouraged the patient to verbalize the concerns rather than to act out. JOB# [id number]
[2017-01-27] MEDS: Multivitamin w/ Minerals Tab PO SCH (08:43)
--- NOTE | 2017-01-27 21:07 | Progress Notes ---
DATE: 01/27/2017 PSYCHIATRIC PROGRESS NOTE SUBJECTIVE: Staff was spoken to. The patient is interviewed. Mood is noted to be irritable. Affect is constricted. The patient has paranoia, but denies any command hallucinations. The patient, however, is noted to be very groggy this morning. Except for the grogginess and sedation, no side effect to the medications are noted. PLAN: The patient is currently on 10 mg of Zyprexa and is going to be changed to 5 mg and the patient is going to be followed up with the supportive therapy. JOB# [id number]
[2017-01-28] MEDS: Multivitamin w/ Minerals Tab PO SCH (09:08)
--- NOTE | 2017-01-29 05:10 | Progress Notes ---
DATE: 01/28/2017 PSYCHIATRIC PROGRESS NOTE SUBJECTIVE: Staff was spoken to. The patient is interviewed. Mood is noted to be anxious. Affect is appropriate. The patient has been less sedated this morning. Coping skills are noted to be still poor. No side effects to the medications are noted. The patient's Zyprexa has been decreased to 5 mg at that time. ASSESSMENT: The patient is still psychotic, but not too drowsy. PLAN: To continue the patient with supportive therapy. I encouraged the patient to verbalize the concerns rather than to act out. JOB# [id number]
[2017-01-29] MEDS: Multivitamin w/ Minerals Tab PO SCH (08:47)
--- NOTE | 2017-01-29 10:01 | Progress Notes ---
DATE: 01/29/2017 PSYCHIATRIC PROGRESS NOTE TIME PATIENT SEEN: Staff was spoken to. Patient is interviewed. Mood is irritable. Affect is constricted. The patient has been pacing most of the time on the unit confused but not that drowsy as before. His screaming and yelling has been coming down. No side effects to the medications are noted. The patient at this time has been able to participate in the groups. Blood pressure is coming normal. ASSESSMENT: The patient's psychosis is resolving. PLAN: To continue the patient with the supportive therapy. I encouraged the patient to verbalize the concerns rather than to act out. JOB# [id number]
[2017-01-30] MEDS: Multivitamin w/ Minerals Tab PO SCH (09:47)
--- NOTE | 2017-01-30 19:55 | Progress Notes ---
DATE: 01/30/2017 PSYCHIATRIC PROGRESS NOTE SUBJECTIVE: Staff was spoken to. The patient is interviewed. Mood is noted to be irritable. Affect is constricted. The patient is still isolative and withdrawn. Paranoid delusions are noted, but patient's drowsiness has been coming down. The patient is still having problem with short-term as well as long-term memories. ASSESSMENT: The patient is still paranoid. PLAN: To continue the patient with Zyprexa and follow the patient with supportive therapy. JOB# [id number]
== END 2017-01-30 17:20 | disposition home or self-care (01) | DRG 885 ==
LOC: ER 18:04 → GERO 21:35
PROVIDERS: ADMIT Psychiatry & Neurology Psychiatry; ATTEND Psychiatry & Neurology Psychiatry
DX: F29 Unspecified psychosis not due to a substance or known physiological condition (principal); F03.91 Unspecified dementia, unspecified severity, with behavioral disturbance; E87.1 Hypo-osmolality and hyponatremia; E44.1 Mild protein-calorie malnutrition; G25.9 Extrapyramidal and movement disorder, unspecified; I10 Essential (primary) hypertension; R26.81 Unsteadiness on feet; F41.9 Anxiety disorder, unspecified; N40.0 Benign prostatic hyperplasia without lower urinary tract symptoms; N32.81 Overactive bladder; F20.9 Schizophrenia, unspecified; Z68.21 Body mass index [BMI] 21.0-21.9, adult
CPT/HCPCS: 36415-UA; 71010-TC; 80053-TC; 83036-90; 84443-TC; 85025-TC; 97530; J7030; J7051; X3904; Z7502; Z7610